=== PATIENT | female | born 1940 | race Two or more races ===

== ENCOUNTER 2025-01-08 16:04 | Emergency (ER) | payer MEDICARE, BC, SELFPAY ==
[2025-01-08 16:05] VITALS: BMI 29.6
--- NOTE | 2025-01-08 17:08 | XR_ITS ---
Examination: CT cervical spine without contrast 2-D sagittal reconstructions 2-D coronal reconstructions 3-D reconstructions. Exam date and time: January 08, 2025, 1720 hours INDICATIONS: Ground-level fall today with injury to the neck, neck pain COMPARISON: May 03, 2023 CTDI:vol (mGy) 16.5 DLP: (mGycm) 319 Technique: Multiple 2 mm axial sections of the cervical spine have been obtained. The coronal and sagittal reconstructions have been obtained. 3-D reconstructions have been obtained. Low dose protocols were performed. One or more of the following dose reduction techniques were used; automated exposure control, adjustment of the mA and/or KV according to patient size, use of iterative reconstruction technique. Findings: Axial sections demonstrate intact base of the skull. C1 exhibit satisfactory relationship to the odontoid. No acute cervical vertebral body fracture seen. Alignment posterior spinous processes satisfactory. Advanced degenerative disc disease C4-C5, C5-C6, C6-C7 Impression: No acute cervical fracture.
--- NOTE | 2025-01-08 17:08 | XR_ITS ---
Examination: CT brain head without contrast. 2-D sagittal coronal reconstructions Date and time of exam: January 08, 2025, 1720 hours, comparison May 03, 2023 INDICATIONS: Ground-level fall today with injury to the head, head pain CTDI: vol (mGy): 48.3 DLP: (mGycm): 985 Technique: Multiple CT axial sections of the brain have been obtained, 5 mm slice thickness. Contrast has not been administered. 2-D sagittal, coronal reconstructions have been obtained Low dose protocols were performed. One or more of the following dose reduction techniques were used; automated exposure control, adjustment of the mA and/or KV according to patient size, use of iterative reconstruction technique. Findings: No significant ventricular enlargement. Intra-axial or extra-axial hemorrhage density is not seen. No mass effect or midline shift Basal cisterns are not remarkable. Fourth ventricle is midline. Cranial vault intact. Impression: Negative for acute hemorrhage, mass effect or midline shift
--- NOTE | 2025-01-08 17:08 | XR_ITS ---
Examination: CT maxillofacial, without intravenous contrast. 2-D sagittal reconstructions. 3-D reconstructions. Date and time of exam: January 08, 2025, 1720 hours INDICATION: Ground-level fall today with injury to the face, facial pain CTDI: vol (mGy): 15.3 DLP: (mGycm): 264 Technique: Multiple axial images of maxillofacial region, 3.0 mm slice thickness. 2-D sagittal and coronal reconstructions. 3-D reconstructions. Low dose protocols were performed. One or more of the following dose reduction techniques were used; automated exposure control, adjustment of the mA and/or KV according to patient size, use of iterative reconstruction technique. Findings: Frontal bone frontal sinuses intact Orbital rims intact with small polyp in the left maxillary antrum No depression zygomatic arches No nasal bone fracture Pterygoid plates maxilla and the mandible intact Optic globes exhibits symmetry IMPRESSION: No acute facial fracture.
--- NOTE | 2025-01-08 17:09 | PD.EDRME ---
Rapid Medical Screening Exam RME Arrival date/time: 01/08/25 16:04 84-year-old female with no known medical history presents to the emergency room with a chief complaint of tenderness to the right top of the forehead after a ground-level fall that occurred 40 minutes ago when she tripped over a cat I have greeted and performed a focused initial assessment of this patient. A comprehensive ED assessment and evaluation of the patient, analysis of all test results, and completion of the medical decision making process will be conducted by additional ED providers. Chief Complaint: Head Injury Time Seen by Provider: 01/08/25 16:23 Vital signs reviewed by provider: Yes Exam: There is some tenderness and a sunken area to the right top of the forehead Patient is a GCS of 15 alert and oriented x 3 Clinical Impression: Head bleed/concussion
[2025-01-08 17:13] VITALS: BP 179/76; PULSE 68; RESP 18; TEMP 36.6; O2SAT 96
--- NOTE | 2025-01-08 20:47 | PD.EDHEAD ---
ED Head Injury RME/HPI General Chief complaint: Head Injury Stated complaint: HEAD PAIN SP TRIP AND FALL X40MIN Time Seen by Provider: 01/08/25 16:23 Arrival date/time: 01/08/25 16:04 Limitations: no limitations RME / HPI RME / HPI Narrative: 01/08/25 16:04 84-year-old female with no known medical history presents to the emergency room with a chief complaint of tenderness to the right top of the forehead after a ground-level fall that occurred 40 minutes ago when she tripped over a cat I have greeted and performed a focused initial assessment of this patient. A comprehensive ED assessment and evaluation of the patient, analysis of all test results, and completion of the medical decision making process will be conducted by additional ED providers. Dr. Candelario's Main ED Evaluation: 84yo female presents to the ED for a fall. Patient states her dog ran between her legs just RADIOLOGY CT TECHNOLOGIST, reporting she tripped and fell. She did hit her head, but did not lose consciousness. Patient endorses having a headache and soreness to her neck. She denies any extremity pain, chest pain, shortness of breath, abdominal pain, or any other associated symptoms. NKA. Related Data Allergies Allergy/AdvReac Type Severity Reaction Status Date / Time NKA* Allergy Uncoded 01/08/25 16:08 Review of Systems Review of Systems Systems Reviewed: All systems reviewed, normal except as documented Past Medical History Social History SMOKING STATUS: Former smoker ED Exam General Limitations: Present no limitations General appearance: Present alert and in no apparent distress Head Head exam: Present normocephalic and other (abrasion to the right side of the forehead) Eye Eye exam: Present normal appearance, PERRL and EOMI ENT ENT exam: Present normal exam, normal oropharynx and mucous membranes moist Neck Neck exam: Present normal inspection, full ROM and trachea midline Chest Chest inspection: Present normal inspection and symmetric chest wall rise Respiratory Respiratory exam: Present normal lung sounds bilaterally Cardiovascular Cardiovascular exam: Present regular rate, normal rhythm and normal heart sounds Abdominal Exam Abdominal exam: Present soft Extremities Exam Extremities exam: Present normal inspection and full ROM Back Exam Back exam: Present normal inspection and full ROM Neurological Exam Neurological exam: Present alert, oriented X3, CN II-XII intact, normal gait and other (Normal finger-nose); Absent motor sensory deficit Psychiatric Psychiatric exam: Present normal affect and normal mood Skin Skin exam: Present warm, dry, intact and normal color Course Quality Measures none Orders Category Date Time Status CT cervical spine wo con Stat Exams 01/08/25 17:[address] facial bones wo con Stat Exams 01/08/25 17:[address] head/brain wo con Stat Exams 01/08/25 17:08 Completed Vital Signs Vital signs: Vital Signs Temperature 97.8 F 01/08/25 17:13 Pulse Rate 68 01/08/25 17:13 Respiratory Rate 18 01/08/25 17:13 Blood Pressure 179/76 H 01/08/25 17:13 Pulse Oximetry (%) 96 01/08/25 17:13 Oxygen Delivery Method Room Air 01/08/25 17:13 Head Injury MDM Narrative MDM Narrative:: Scribe Attestation: 01/08/25 - Brigida Walton am scribing for and in the presence of Dr. Candelario. CTs are reviewed and interpreted by me. No bleed, fractures, no tumors. Patient is ambulatory in the emergency department. Not vomiting. Vitals remained stable. Return precautions given and understood. Patient data External records reviewed:: [facility] previous records (Per chart review, patient was seen here on 05/03/23 for contusion of the knee.) Clinical information provided by:: patient Social determinants that could affect healthcare access:: none Patient has the following chronic illnesses:: none How is presenting disease/condition affected by chronic disease/condition?: no chronic disease Evaluation data The following diagnostics were reviewed and interpreted by me:: radiology exam(s) Lab and/or radiology exams considered but not ordered:: none Interpretation Summary: [facility] Report Signed Patient: TESHA LOVING. Record#: [id number] Birthdate: 1940 Age/Sex: 84 / F Location: [facility] Attending Dr: Ordering Physician: Shahzad Sotomayor Date of Service: 01/08/25 Procedure(s): CT head/brain wo con Accession Number(s): [id number] cc: Shahzad Sotomayor; Kemal Mendenhall MD; NO PRIMARY/FAMILY,PHYSICIAN~ Examination: CT brain head without contrast. 2-D sagittal coronal reconstructions Date and time of exam: January 08, 2025, 1720 hours, comparison May 03, 2023 INDICATIONS: Ground-level fall today with injury to the head, head pain CTDI: vol (mGy): 48.3 DLP: (mGycm): 985 Technique: Multiple CT axial sections of the brain have been obtained, 5 mm slice thickness. Contrast has not been administered. 2-D sagittal, coronal reconstructions have been obtained Low dose protocols were performed. One or more of the following dose reduction techniques were used; automated exposure control, adjustment of the mA and/or KV according to patient size, use of iterative reconstruction technique. Findings: No significant ventricular enlargement. Intra-axial or extra-axial hemorrhage density is not seen. No mass effect or midline shift Basal cisterns are not remarkable. Fourth ventricle is midline. Cranial vault intact. Impression: Negative for acute hemorrhage, mass effect or midline shift Dictated By: Kemal Mendenhall MD Signed By: <Electronically signed by Kemal Mendenhall MD in [place]> 01/08/25 1752 [facility] Report Signed Patient: TESHA LOVING Record#: [id number] Birthdate: 1940 Age/Sex: 84 / F Location: [facility] Attending Dr: Ordering Physician: Shahzad Sotomayor Date of Service: 01/08/25 Procedure(s): CT cervical spine wo con Accession Number(s): [id number] cc: Shahzad Sotomayor; Kemal Mendenhall MD; NO PRIMARY/FAMILY,PHYSICIAN~ Examination: CT cervical spine without contrast 2-D sagittal reconstructions 2-D coronal reconstructions 3-D reconstructions. Exam date and time: January 08, 2025, 1720 hours INDICATIONS: Ground-level fall today with injury to the neck, neck pain COMPARISON: May 03, 2023 CTDI:vol (mGy) 16.5 DLP: (mGycm) 319 Technique: Multiple 2 mm axial sections of the cervical spine have been obtained. The coronal and sagittal reconstructions have been obtained. 3-D reconstructions have been obtained. Low dose protocols were performed. One or more of the following dose reduction techniques were used; automated exposure control, adjustment of the mA and/or KV according to patient size, use of iterative reconstruction technique. Findings: Axial sections demonstrate intact base of the skull. C1 exhibit satisfactory relationship to the odontoid. No acute cervical vertebral body fracture seen. Alignment posterior spinous processes satisfactory. Advanced degenerative disc disease C4-C5, C5-C6, C6-C7 Impression: No acute cervical fracture. Dictated By: Kemal Mendenhall MD Signed By: <Electronically signed by Kemal Mendenhall MD in [place] 01/08/25 1751 [facility] Report Signed Patient: TESHA LOVING Record#: [id number] Birthdate: 1940 Age/Sex: 84 / F Location: [facility] Attending Dr: Ordering Physician: Shahzad Sotomayor Date of Service: 01/08/25 Procedure(s): CT facial bones wo con Accession Number(s): [id number] cc: Shahzad Sotomayor; Kemal Mendenhall MD; NO PRIMARY/FAMILY,PHYSICIAN~ Examination: CT maxillofacial, without intravenous contrast. 2-D sagittal reconstructions. 3-D reconstructions. Date and time of exam: January 08, 2025, 1720 hours INDICATION: Ground-level fall today with injury to the face, facial pain CTDI: vol (mGy): 15.3 DLP: (mGycm): 264 Technique: Multiple axial images of maxillofacial region, 3.0 mm slice thickness. 2-D sagittal and coronal reconstructions. 3-D reconstructions. Low dose protocols were performed. One or more of the following dose reduction techniques were used; automated exposure control, adjustment of the mA and/or KV according to patient size, use of iterative reconstruction technique. Findings: Frontal bone frontal sinuses intact Orbital rims intact with small polyp in the left maxillary antrum No depression zygomatic arches No nasal bone fracture Pterygoid plates maxilla and the mandible intact Optic globes exhibits symmetry IMPRESSION: No acute facial fracture. Dictated By: Kemal Mendenhall MD Signed By: <Electronically signed by Kemal Mendenhall MD in [place]> 01/08/25 4605 Medications / Prescriptions Medications or Prescriptions considered but not ordered:: none Medication administrations:: none Consultations Consultation(s) initiated? (list below): No Diagnosis Differential diagnosis head injury: concussion without loss of consciousness, closed head injury, subarachnoid hematoma and subdural hematoma Most likely diagnosis given after review of the tests above:: see clinical impression below Admission Indicated Admission indicated?: not indicated Admission Request Was there a request for admission?: No Disposition Plan Disposition Plan: Discharge Discharge Attestation Discharge Attestation: The patient and all family members were given an opportunity to ask questions and understood the discharge instructions. Discharge instructions specifically effects, indications for sooner follow up or return to the emergency department, and the expected course of current diagnosis. Patient condition: Stable Discharge Plan Plan Patient Disposition: HOME (Self Care) Patient condition on transfer: Stable Prescriptions/Referrals Referrals: No Primary/Family,Physician [Primary Care Provider] - In 1 week Problem List Clinical Impression: Closed head injury, Abrasion head Patient/Caregiver Discharge Instructions Education Materials: ED Abrasions, ED Head Injury (Adult) Additional Instructions: Return to the emergency department for worsening symptoms of any other concerns. Stay hydrated with Pedialyte and/or Gatorade. You can take Tylenol 650. Print Language: Albanian Stand Alone Forms: [facility] Award Info., Patient Portal Info Letter
== END 2025-01-08 21:04 | disposition home or self-care (01) ==
PROVIDERS: Emergency Provider Emergency Medicine
DX: S00.91XA Abrasion of unspecified part of head, initial encounter (principal); S09.93XA Unspecified injury of face, initial encounter; S19.9XXA Unspecified injury of neck, initial encounter; W01.0XXA Fall on same level from slipping, tripping and stumbling without subsequent striking against object, initial encounter
CPT/HCPCS: 70450; 70486; 72125; 99282